=== PATIENT | female | born 2000 | race Caucasian/White ===

== ENCOUNTER 2025-01-29 06:55 | Emergency (ER) | payer BC, OTHER ==
[2025-01-29] MEDS ORDERED: ONDANSETRON 4 MG/2 ML VIAL ONE (07:59)
[2025-01-29] MEDS ORDERED: KETOROLAC 30 MG/ML INJ ONE (07:59)
[2025-01-29] MEDS ORDERED: NA CHLORIDE 0.9% 1,000 ML ONE (08:00)
[2025-01-29 08:35] LABS: Absolute Lymphocytes (CBC) 0.7 K/uL (0.7-4.9); Hematocrit 37.0 % (36.0-45.0); Hemoglobin 12.8 g/dL (12.0-15.0); MCH 29.4 pg (27.0-35.0); MCHC 34.6 g/dL (32.0-36.0); MCV 85.0 fL (80-100); MPV 8.5 fL (7.6-11.3); Nucleated RBC Absolute Count 0.0 (0-0); Nucleated Red Blood Cells % 0.0 % (0-0); RBC Red Blood Cell Count 4.35 M/uL (3.86-4.86); White Blood Count 10.70 thou/uL (4.3-10.9)
[2025-01-29 08:38] LABS: Sqamous Epithelial <5 /HPF (None Seen); Urine Crystals Unidentified Few /HPF (None Seen); Urine Culture Reflex Order NOT NEEDED; Urine Microscopic Reflex YN ORDER UMIC
[2025-01-29 08:56] LABS: ALT/SGPT 21.0 U/L (13-56); AST/SGOT 20.0 U/L (15-37); Albumin 3.7 g/dL (3.4-5.0); Albumin/Globulin Ratio 0.9 (1.1-1.8); Alkaline Phosphatase 61.0 U/L (45-117); Anion Gap 9.7 mEq/L (5.0-15.0); BUN Blood Urea Nitrogen 15.0 mg/dL (7-18); Globulin 4.0 g/dL (2.3-3.5); Glucose Level 95.0 mg/dL (74-106); Lipase 35.0 U/L (13-75); Potassium 3.7 mEq/L (3.5-5.1)
--- NOTE | 2025-01-29 09:25 | ER ---
Nurse's Notes [facility] Name: Hannah Willis Age: 24 yrs Sex: Female : 2000 Arrival Date: 01/29/2025 Time: 06:55 Bed 6 Private MD: Diagnosis: Endometriosis, abdominal pain, abdominal cramping Presentation: 01/29 07:23 Chief complaint: Patient states: "MY OVARIES AND MY LOWER BACK HURT". Coronavirus bp screen: At this time, the client does not indicate any symptoms associated with coronavirus-19. Ebola Screen: No symptoms or risks identified at this time. Initial Sepsis Screen: Does the patient meet any 2 criteria? No. Patient's initial sepsis screen is negative. Does the patient have a suspected source of infection? No. Patient's initial sepsis screen is negative. Risk Assessment: Do you want to hurt yourself or someone else? Patient reports no desire to harm self or others. Onset of symptoms was January 29, 2025 at 02:00. 07:23 Method Of Arrival: Ambulatory bp 07:23 Acuity: ONIEL 3 bp Triage Assessment: 07:25 General: Appears in no apparent distress. Behavior is calm, cooperative, appropriate bp for age. Pain: Complains of pain in low back area and pelvis. EENT: No deficits noted. Neuro: No deficits noted. Cardiovascular: No deficits noted. Respiratory: No deficits noted. GI: No deficits noted. : Reports pain in lower back. Derm: No deficits noted. Musculoskeletal: No deficits noted. Historical: - Allergies: 07:25 No Known Allergies; bp - PMHx: 07:25 Endometriosis of vagina; bp - PSHx: 07:25 Endometriosis surgery; bp - Immunization history:: Adult Immunizations up to date. - Infectious Disease History:: Denies. - Social history:: Smoking status: Patient denies any tobacco usage or history of. Screenin:30 [facility] ED Fall Risk Assessment (Adult) History of falling in the last 3 months, bp including since admission No falls in past 3 months (0 pts) Confusion or Disorientation No (0 pts) Intoxicated or Sedated No (0 pts) Impaired Gait No (0 pts) Mobility Assist Device Used No (0 pt) Altered Elimination No (0 pt) Score/Fall Risk Level 0 - 2 = Low Risk Oriented to surroundings. Abuse screen: Denies threats or abuse. Denies injuries from another. Nutritional screening: No deficits noted. Tuberculosis screening: No symptoms or risk factors identified. Assessment: 07:30 General: SEE TRIAGE NOTE. bp 09:30 Reassessment: Patient states symptoms have improved. bp 09:34 Reassessment: Patient appears in no apparent distress at this time. Patient and/or db family updated on plan of care and expected duration. Pain level reassessed. Patient is alert, oriented x 3, equal unlabored respirations, skin warm/dry/pink. Vital Signs: 07:23 BP 109 / 74; Pulse 81; Resp 16; Temp 98.5; Pulse Ox 100% ; bp 09:29 BP 104 / 61; Pulse 66; Resp 16; Pulse Ox 100% ; bp ED Course: 06:59 Patient arrived in ED. gm2 07:05 Gus Dickerson MD is Attending Physician. sp3 07:23 Romulo Black, RN is Primary Nurse. bp 07:25 Triage completed. bp 07:25 Arm band placed on. bp 07:30 Patient has correct armband on for positive identification. bp 08:05 Initial lab(s) drawn, by labor arbitrator, sent to lab. Inserted saline lock: 20 gauge in right ts3 antecubital area, using aseptic technique. Blood collected. Flushed with 10 mL NS. 08:05 Urine collected: clean catch specimen, sent to lab. ts3 09:30 No provider procedures requiring assistance completed. IV discontinued, intact, bp bleeding controlled, No redness/swelling at site. Pressure dressing applied. Administered Medications: 08:04 Drug: TORadol - Ketorolac IVP 30 mg IVP once Route: IVP; Site: right forearm; bp 09:31 Follow up: Response: No adverse reaction bp 08:04 Drug: Ondansetron IVP 4 mg IVP once; over 2 minutes Route: IVP; Site: right forearm; bp 09:31 Follow up: Response: No adverse reaction bp 08:04 Drug: NS 0.9% IV 500 ml 500 ml IV at 1 bolus once; to be given as a bolus over 30 bp minutes Volume: 500 ml; Route: IV; Rate: 1 bolus; Site: right forearm; 09:31 Follow up: IV Status: Completed infusion bp Medication: 09:31 VIS not applicable for this client. bp Outcome: 09:25 Discharge ordered by MD. lima :30 Discharged to home ambulatory, with family, bp : Condition: stable : Discharge instructions given to patient, Instructed on discharge instructions, follow up and referral plans. medication usage, Demonstrated understanding of instructions, follow-up care, medications, Prescriptions given X 2, :33 Patient left the ED. bp Signatures: Romulo Black RN RN bp Gus Dickerson MD MD sp3 Margaret Springer RN RN Ratna Argueta 2 Haylie Guthrie 3
--- NOTE | 2025-01-29 09:25 | EDPHYS ---
Physician Documentation [facility] Name: Hannah Willis Age: 24 yrs Sex: Female : 2000 Arrival Date: 01/29/2025 Time: 06:55 Bed 6 Private MD: ED Physician Gus Dickerson HPI: 01/29 07:46 This 24 yrs old Female presents to ER via Ambulatory with complaints of Low Back Pain, sp3 Lower abd pain. 07:46 24-year-old female with history of endometriosis now presents with recurrent lower sp3 abdominal pain bilaterally coupled with mild low back pain. Patient had similar episode 4 months ago where she received a full workup including CT scan of the abdomen pelvis with contrast which demonstrated no significant abnormality. Patient just started her menses this week and prior menses was 4 weeks ago. She denies dysuria, urinary frequency, upper abdominal pain, upper back pain, chest pain, shortness of breath, syncope, near syncope, fever, URI symptoms, known sick contacts, travel history, or any other signs or symptoms on ROS at this time. She denies .. Historical: - Allergies: 07:25 No Known Allergies; bp - PMHx: 07:25 Endometriosis of vagina; bp - PSHx: 07:25 Endometriosis surgery; bp - Immunization history:: Adult Immunizations up to date. - Infectious Disease History:: Denies. - Social history:: Smoking status: Patient denies any tobacco usage or history of. ROS: 07:47 Constitutional: Negative for fever, chills, and weight loss, Eyes: Negative for injury, sp3 pain, redness, and discharge, ENT: Negative for injury, pain, and discharge, Neck: Negative for injury, pain, and swelling, Cardiovascular: Negative for chest pain, palpitations, and edema, Respiratory: Negative for shortness of breath, cough, wheezing, and pleuritic chest pain, : Negative for injury, bleeding, discharge, and swelling, MS/Extremity: Negative for injury and deformity, Skin: Negative for injury, rash, and discoloration, Neuro: Negative for headache, weakness, numbness, tingling, and seizure, Psych: Negative for depression, anxiety, suicide ideation, homicidal ideation, and hallucinations, Allergy/Immunology: Negative for hives, rash, and allergies, Endocrine: Negative for neck swelling, polydipsia, polyuria, polyphagia, and marked weight changes, 07:47 All other systems are negative, Exam: 07:47 Constitutional: This is a well developed, well nourished patient who is awake, alert, sp3 and in no acute distress. Head/Face: Normocephalic, atraumatic. Eyes: Pupils equal round and reactive to light, extra-ocular motions intact. Lids and lashes normal. Conjunctiva and sclera are non-icteric and not injected. Cornea within normal limits. Periorbital areas with no swelling, redness, or edema. Chest/axilla: Normal chest wall appearance and motion. Nontender with no deformity. No lesions are appreciated. Cardiovascular: Regular rate and rhythm with a normal S1 and S2. No gallops, murmurs, or rubs. Normal PMI, no JVD. No pulse deficits. Respiratory: Lungs have equal breath sounds bilaterally, clear to auscultation and percussion. No rales, rhonchi or wheezes noted. No increased work of breathing, no retractions or nasal flaring. Back: No spinal tenderness. No costovertebral tenderness. Full range of motion. Skin: Warm, dry with normal turgor. Normal color with no rashes, no lesions, and no evidence of cellulitis. MS/ Extremity: Pulses equal, no cyanosis. Neurovascular intact. Full, normal range of motion. Neuro: Awake and alert, GCS 15, oriented to person, place, time, and situation. Cranial nerves II-XII grossly intact. Motor strength 5/5 in all extremities. Sensory grossly intact. Cerebellar exam normal. Normal gait. 07:47 Abdomen/GI: Patient with mild abdominal pain bilateral inguinal area without peritoneal signs, rebound or guarding., Vital Signs: 07:23 BP 109 / 74; Pulse 81; Resp 16; Temp 98.5; Pulse Ox 100% ; bp 09:29 BP 104 / 61; Pulse 66; Resp 16; Pulse Ox 100% ; bp MDM: 07:05 Medical Screening Exam initiated sp3 07:48 Data reviewed: vital signs, nurses notes, lab test result(s). ED course: 43-year-old sp3 female with lower abdominal pain mild in nature consistent with endometriosis and her current menses. Differential diagnosis includes menstrual cramps, endometriosis, UTI, other GI pathology. Workup will include general labs, UA and treatment with IV fluids, ketorolac and ondansetron IV. Probable discharge home once patient feels better. Patient does not have acute abdomen and there is no surgical emergency based on clinical exam. Imaging deferred given normal CT scan of the abdomen pelvis 4 months ago. Vital signs are normal.. 09:23 ED course: Patient feels better. Full workup negative. 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 01/29 08:27 Order name: Comprehensive Metabolic Panel EDMS 01/29 08:27 Order name: Lipase EDMS 01/29 08:27 Order name: CBC with Automated Diff EDMS 01/29 08:27 Order name: UA Rfx Danyel Cult if indicated EDMS 01/29 08:27 Order name: Test, Urine EDMS 01/29 08:35 Order name: Test, Urine; Complete Time: 08:36 EDMS 01/29 08:38 Order name: UA Rfx Danyel Cult if indicated; Complete Time: 09:20 EDMS 01/29 08:56 Order name: Comprehensive Metabolic Panel; Complete Time: 09:20 EDMS 01/29 08:56 Order name: Lipase; Complete Time: 09:20 EDMS 01/29 08:57 Order name: CBC with Automated Diff EDMS 01/29 08:58 Order name: CBC Smear Scan EDMS 01/29 07:44 Order name: IV Saline Lock; Complete Time: 08:04 sp3 01/29 07:44 Order name: Labs collected and sent; Complete Time: 08:04 sp3 Administered Medications: 08:04 Drug: TORadol - Ketorolac IVP 30 mg IVP once Route: IVP; Site: right forearm; bp 09:31 Follow up: Response: No adverse reaction bp 08:04 Drug: Ondansetron IVP 4 mg IVP once; over 2 minutes Route: IVP; Site: right forearm; bp 09:31 Follow up: Response: No adverse reaction bp 08:04 Drug: NS 0.9% IV 500 ml 500 ml IV at 1 bolus once; to be given as a bolus over 30 bp minutes Volume: 500 ml; Route: IV; Rate: 1 bolus; Site: right forearm; 09:31 Follow up: IV Status: Completed infusion bp Disposition Summary: 01/29/25 09:25 Discharge Ordered Notes: Location: Home sp3 Condition: Stable sp3 Diagnosis - Endometriosis, abdominal pain, abdominal cramping sp3 Followup: sp3 - With: Private Physician - When: Upon discharge from the Emergency Department - Reason: Continuance of care Discharge Instructions: - Endometriosis sp3 - Discharge Summary Sheet db Forms: - Medication Reconciliation Form sp3 - Antibiotic Education sp3 - Prescription Opioid Use sp3 - Patient Portal Instructions sp3 - Leadership Thank You Letter sp3 - Work release form db Prescriptions: - Diclofenac Sodium 75 mg Oral Tablet Sustained Release - take 1 tablet ORAL route 2 times per day; 30 tablet; Refills: 0, Product sp3 Selection Permitted - Tramadol 50 mg Oral Tablet - take 1 tablet ORAL route every 8 hours as needed; 12 tablet; Refills: 0, sp3 Product Selection Permitted Signatures: Dispatcher [employer] Romulo Godoy, RN RN Gus Barrett MD MD sp3
[2025-01-29 09:33] LABS: Blood Morphology Comment NOT SEEN (NOT SEEN); White Blood Cell Scan OK (OK)
[2025-01-29 09:38] VITALS: TEMP 98.5; O2SAT 100
[2025-01-29 09:39] VITALS: BP 104/61
== END 2025-01-29 09:33 | disposition home or self-care (01) ==
LOC: ER 06:55
DX: N80.42 Endometriosis of rectovaginal septum with involvement of vagina (principal)
CPT/HCPCS: 96361; 85025; 81001; 36415; 81025; 83690; 80053; 96375; 96374; 99284; J1885; J2405; J7030